=== PATIENT | female | born 1975 | race Caucasian/White ===

== ENCOUNTER 2018-02-10 11:53 | Day surgery (SDC) | payer OTHER ==
[~2018-02-10] VITALS: Ht 165.1 cm; Wt 94.3 kg
[~2018-02-10 11:53] MED LIST: ALBU90OI INH; ALBU90OI6 INH; AZIT250 PO; BIRTH CONTROL; LEVONEST1 EACH PO; LOSA50 PO; PRED20 PO; TIOT18 INH
== END 2018-02-10 14:23 | disposition home or self-care (01) ==
LOC: ORSCSDS 11:53
PROVIDERS: Obstetrics & Gynecology
PROC: 0UDB8ZX Extraction of Endometrium, Via Natural or Artificial Opening Endoscopic, Diagnostic (ICD-10-PCS; principal; 2018-02-10 13:15)
DX: N93.8 Other specified abnormal uterine and vaginal bleeding (principal); D25.9 Leiomyoma of uterus, unspecified; N84.0 Polyp of corpus uteri; I10 Essential (primary) hypertension; J45.909 Unspecified asthma, uncomplicated; E66.9 Obesity, unspecified; Z68.34 Body mass index [BMI] 34.0-34.9, adult; Z79.899 Other long term (current) drug therapy
CPT/HCPCS: 88305; J0690; J1885; J3010; J7120

== ENCOUNTER → 2019-06-13 | Outpatient (CLI) | payer OTHER | END | disposition home or self-care (01) | LOC: LAB SHORT 16:13 → LAB 16:13 | DX: R31.9 Hematuria, unspecified (principal) | CPT/HCPCS: 87086 ==

== ENCOUNTER → 2019-12-21 | Outpatient (CLI) | payer OTHER ==
[2019-12-24 09:57] LABS: Bilirubin, Urine Neg (Neg); Blood, Urine 4+ (Neg); Glucose Qualitative, Urine Neg (Neg); Ketones, Urine 1+ (Neg); Leukocyte Esterase, Urine 3+ (Neg); Nitrite, Urine Neg (Neg); Protein, Urine 3+ (Neg); Urobilinogen, Urine NORM (Normal)
[2019-12-24 11:43] LABS: Appearance, Urine Hazy (Clear); Color, Urine Yellow (P-Yellow)
[2019-12-24 11:46] LABS: White Blood Cells, Urine TNTC /hpf (0-5)
[2019-12-24 11:47] LABS: Bacteria Many /hpf; Squamous Epithelial Cells Few /hpf (Few)
== END ==
LOC: LAB SHORT 12:00 → LAB SRC 12:00
PROVIDERS: Family Medicine
DX: N39.0 Urinary tract infection, site not specified (principal)
CPT/HCPCS: 81001; 87077; 87086; 87186

== ENCOUNTER 2023-11-09 13:41 | Day surgery (SDC) | payer OTHER ==
[~2023-11-09] VITALS: Ht 165.1 cm; Wt 108.3 kg
[~2023-11-09 13:41] MED LIST changes: +AMLO5 PO; +FLUT1DIS5 INH; +LARIN 21 1-201 EACH PO; -LOSA50 PO; +LOSARTAN POTAS100 M1 PO
[2023-11-09] MEDS ORDERED: Ventolin/Prove6.7 GM (14:18)
[2023-11-09] MEDS ORDERED: LARIN 21 1-201 EACH PO (14:18)
[2023-11-09] MEDS ORDERED: ZYRTEC10 M2 PO (14:19)
[2023-11-09] MEDS ORDERED: IBUP200 PO (14:20)
[2023-11-09 15:10] VITALS: BP 34/90
== END 2023-11-09 15:28 | disposition home or self-care (01) ==
LOC: ORSCSDS 13:41
PROVIDERS: Internal Medicine Gastroenterology
PROC: 0D757ZZ Dilation of Esophagus, Via Natural or Artificial Opening (ICD-10-PCS; principal; 2023-11-09 15:15)
PROC: 0DB68ZX Excision of Stomach, Via Natural or Artificial Opening Endoscopic, Diagnostic (ICD-10-PCS; principal; 2023-11-09 15:15)
PROC: 0DB58ZX Excision of Esophagus, Via Natural or Artificial Opening Endoscopic, Diagnostic (ICD-10-PCS; principal; 2023-11-09 15:15)
DX: R13.10 Dysphagia, unspecified (principal); R10.13 Epigastric pain; K21.00 Gastro-esophageal reflux disease with esophagitis, without bleeding; K29.70 Gastritis, unspecified, without bleeding; K44.9 Diaphragmatic hernia without obstruction or gangrene; K22.2 Esophageal obstruction; J45.909 Unspecified asthma, uncomplicated; I10 Essential (primary) hypertension; E66.01 Morbid (severe) obesity due to excess calories; Z68.38 Body mass index [BMI] 38.0-38.9, adult; Z79.899 Other long term (current) drug therapy
CPT/HCPCS: J0461; J2001; J2405; J2704; J7120; Q9968

== ENCOUNTER → 2024-05-27 | Outpatient (CLI) | payer OTHER ==
[~2024-05-27] MED LIST changes: +IBUP200 PO; +Ventolin/Prove6.7 GM; +ZYRTEC10 M2 PO
[2024-05-30 12:44] LABS: Stool Occult Bld Immuno 1 Negative (NEGATIVE)
== END | disposition home or self-care (01) ==
LOC: LAB 10:10 → LAB SHORT 10:10
PROVIDERS: Family Medicine
DX: Z12.11 Encounter for screening for malignant neoplasm of colon (principal)
CPT/HCPCS: G0328